=== PATIENT | male | born 1975 | race American Indian/Alaskan Native ===

== ENCOUNTER 2016-11-06 19:22 | Emergency (ER) | payer OTHER ==
[2016-11-06] MEDS ORDERED: TORADOL IM ONE (22:49)
[2016-11-06] MEDS ORDERED: FLEXERIL PO ONE (22:49)
--- NOTE | 2016-11-06 22:49 | Emergency Department Report ---
HPI - General Chief Complaint: Back Pain/Injury Time Seen by Provider: 11/06/16 22:10 - HPI HPI: 31-year-old male presents to ED complaining of right-sided lower back pain 4 days. 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 Patient states pain is localized to his lower right back. Patient states pain does not radiate [id number]. Patient states history of high blood pressure medication. Patient states he has not taken his medication today because he has been here all day Patient denies fevers/chills/shortness of breath/chest pain/penile pain / Scrotum pain/penile discharge or any other problems. ED Past Medical Hx - Past Medical History Previous Medical History?: Yes Hx Hypertension: Yes - Surgical History Past Surgical History?: No - Social History Smoking Status: Never Smoker Substance Use Type: None - Medications Home Medications: Home Medications Medication Instructions Recorded Confirmed Last Taken Type Amoxicillin [Amoxicillin TAB] 875 mg PO BID #14 tablet 11/01/13 Unknown Rx Lidocaine Viscous 2% [Xylocaine 10 ml PO Q3H PRN #100 ml 11/01/13 Unknown Rx Viscous 2%] amLODIPine [Norvasc] 5 mg PO DAILY #30 tab 11/01/13 Unknown Rx Cyclobenzaprine [Flexeril 10 MG 10 mg PO QHS #20 tablet 11/06/16 Unknown Rx TAB] Ibuprofen [Motrin 800 MG tab] 800 mg PO Q8HR PRN #40 tablet 11/06/16 Unknown Rx ED Review of Systems ROS: Stated complaint: BACK PAIN Other details as noted in HPI Constitutional: denies: chills, fever Eyes: denies: eye pain, eye discharge, vision change ENT: denies: ear pain, throat pain Respiratory: denies: cough, shortness of breath, wheezing Cardiovascular: denies: chest pain, palpitations Endocrine: no symptoms reported Gastrointestinal: denies: abdominal pain, nausea, diarrhea Genitourinary: denies: urgency, dysuria Musculoskeletal: myalgia. denies: back pain, joint swelling, arthralgia Skin: denies: rash, lesions Neurological: denies: headache, weakness, paresthesias Psychiatric: denies: anxiety, depression Hematological/Lymphatic: denies: easy bleeding, easy bruising Physical Exam - Physical Exam Vital Signs: Vital Signs 11/06/16 19:54 Temperature 98.7 F Pulse Rate 64 Respiratory 18 Rate Blood Pressure 150/104 [Right] O2 Sat by Pulse 98 Oximetry Physical Exam: GENERAL: Alert and oriented x3, no apparent distress, Normal Gait, atraumatic. HEAD: Head is normocephalic and a-traumatic. EYES: Extra ocular muscles are intact. Pupils are equal, round, and reactive to light and accommodation. EARS: symetrical, atraumatic, non tender, ear canal clear and moderate cerumen, tympanic membrance non inflamed. gross auditory nml bilaterally. NECK: Supple. Non edematous, No carotid bruits. No lymphadenopathy or thyromegaly. LUNGS: Symetrical with respiration, No wheezing, no rales or crackles, CTAB. HEART: S1, S2 present, regular rate and rhythm without murmur, no rubs, no gallops. ABDOMEN: No organomegaly was noted,Positive bowel sounds, soft, and non- distended. . Nontender to palpation on all Quadrants, NO CVA tenderness. EXTREMITIES/MUSCULOSKELETAL: No cyanosis, clubbing, rash, lesions or edema. Full ROM bilaterally. UE/LE Pulses 2+ bilaterally. LE and UE 5+ strength bilaterally. Straight leg negative bilaterally. Full range of motion of the back. No spinal tenderness NEUROLOGIC: No focal Deficit, Cranial nerves II through XII are grossly intact. No loss of sensation, PSYCHIATRIC: Mood is congruent with affect, denies suicidal or homicidal ideations. SKIN: Warm and dry, No lesions, No ulceration or induration present. ED Course Vital Signs 11/06/16 19:54 Temperature 98.7 F Pulse Rate 64 Respiratory 18 Rate Blood Pressure 150/104 [Right] O2 Sat by Pulse 98 Oximetry ED Medical Decision Making - Medical Decision Making 41-year-old male presents with low back strain. ED course: Patient received Toradol and Flexeril. Blood pressure taken prior to discharge and blood pressure reduced to 122/84. Urinalysis shows no infection. Normal urinalysis Discussed the patient to go home and take his blood pressure medication. Discussed patient to follow up with primary care physician. Discussed to rest and apply heat therapy to lower right back 3 times a day. Patient states he will follow discharge instructions follow up. Discussed if any symptoms arise to return to ED. Data signs are stable patient is in no acute respiratory distress. Critical care attestation.: If time is entered above; I have spent that time in minutes in the direct care of this critically ill patient, excluding procedure time. ED Disposition Clinical Impression: Low back strain Qualifiers: Encounter type: initial encounter Qualified Code(s): S39.012A - Strain of muscle, fascia and tendon of lower back, initial encounter Disposition: DISCHARGED TO HOME OR SELFCARE Is pt being admited?: No Does the pt Need Aspirin: No Condition: Stable Instructions: Muscle Strain (ED), Low Back Strain (ED) Prescriptions: Cyclobenzaprine [Flexeril 10 MG TAB] 10 mg PO QHS #20 tablet Ibuprofen [Motrin 800 MG tab] 800 mg PO Q8HR PRN #40 tablet PRN Reason: Pain Referrals: PRIMARY CARE, [Primary Care Provider] - 3-5 Days JOSIE LANGLEY MD [Referring] - 3-5 Days JAMIE FRANCES MD [Referring] - 3-5 Days CLARISSA WYATT MD [Referring] - 3-5 Days Forms: Work/School Release Form(ED) Time of Disposition: 22:57
[2016-11-06] MEDS ORDERED: CATAPRES PO ONE (22:59)
[2016-11-06 23:23] VITALS: BP 121/82
[2016-11-06 23:42] LABS: Bilirubin,Urine NEG (Negative); Blood,Urine NEG (Negative); Ketones,Urine NEG (Negative); Leukocyte Esterase,Urine NEG (Negative); Mucus,Urine FEW /HPF; Nitrite,Urine NEG (Negative); Protein,Urine <15 mg/dL mg/dL (Negative); Urobilinogen,Urine < 2.0 mg/dL (<2.0)
== END 2016-11-07 | disposition home or self-care (01) ==
LOC: ED 19:22
DX: S39.012A Strain of muscle, fascia and tendon of lower back, initial encounter (principal); I10 Essential (primary) hypertension; X58.XXXA Exposure to other specified factors, initial encounter; Y93.9 Activity, unspecified; Y92.9 Unspecified place or not applicable; Y99.9 Unspecified external cause status
CPT/HCPCS: 81001; 96372; 99283; J1885